=== PATIENT | female | born 1955 | race Caucasian/White ===

== ENCOUNTER 2017-05-04 12:28 | Emergency (ER) | payer BC, OTHER ==
[2017-05-04 14:35] LABS: Hematocrit 43 % (35-47); Hemoglobin 14.5 g/dl (12.0-16.0); Mean Corpuscular HGB Conc 34 g/dl (31-36); Mean Corpuscular Hemoglobin 33 pg (27-31); Mean Corpuscular Volume 98 fL (80-97); Mean Platelet Volume 8 um3 (7.4-10.4); Platelet Count 229 10^3/ul (150-450); Red Blood Count 4.42 10^6/ul (4.0-5.4); Red Cell Distribution Width 14 % (10.5-15); White Blood Count 4.3 10^3/ul (3.5-10.8)
[2017-05-04 14:53] LABS: Urine Appearance Clear; Urine Blood Negative (Negative); Urine Color Straw; Urine Ketones Negative (Negative); Urine Protein Negative (Negative); Urine Specific Gravity 1.003 (1.010-1.030); Urine Urobilinogen Negative (Negative)
[2017-05-04] MEDS ORDERED: Iohexol 350* (CONTRAST) 500 ML MDV IV ONE (15:42)
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
--- NOTE | 2017-05-04 16:18 | RAD ---
INDICATION: Chest pain. Short of breath. Evaluate for pulmonary embolus. COMPARISON: CT chest/abdomen/pelvis February 27, 2016 TECHNIQUE: Axial source images were obtained from the thoracic inlet to the hemidiaphragms following administration of [address] angiographic technique was utilized. Coronal and sagittal reconstructed images were acquired. CHEST FINDINGS: Neck/thyroid: The visualized neck to include the thyroid appear normal. Chest wall: There are no acute abnormalities of the bony thorax or chest wall. There is no supraclavicular, infraclavicular, or axillary lymphadenopathy. Lungs : There are no pulmonary parenchymal masses or infiltrates. There are mild emphysematous changes. There are no endobronchial lesions. Cardiomediastinal structures: There is no CT evidence of acute pulmonary embolic disease. The heart is normal in size. There is no pericardial effusion. There is no evidence of aortic aneurysm or dissection. There is mild annuloaortic ectasia. The aortic root and ascending thoracic aorta measure up to 3.5 cm. There is no mediastinal or hilar adenopathy. The esophagus appears normal. Pleura : There are no pleural-based masses or effusions. Other: There is a patulous GE junction. IMPRESSION: NO CT EVIDENCE OF ACUTE PULMONARY EMBOLIC DISEASE.
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
[2017-05-04 17:50] VITALS: BP 144/83
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
== END 2017-05-04 18:00 | disposition home or self-care (01) ==
LOC: ED 12:28
DX: R07.89 Other chest pain (principal)
CPT/HCPCS: 36415; 70450; 71275; 72125; 80053; 80320; 81003; 85027; 86850; 86900; 86901; 93005; 96372; 99284; G0480; Q9967

== ENCOUNTER 2022-07-28 09:31 | Inpatient (IN) ==
[2022-07-28] MEDS ORDERED: Morphine 4 MG/ML VIAL (1 ml) IV ONE (09:35)
[2022-07-28 09:59] LABS: ABS Lymphocytes 0.9 10^3/ul (1.0-4.8); ABS Neutrophils 4.6 10^3/ul (1.5-7.7); Eosinophil % 0.3 %; Hematocrit 37 % (35-47); Hemoglobin 12.7 g/dL (12.0-16.0); Lymphocyte % 13.6 %; Mean Corpuscular HGB Conc 34 g/dL (31-36); Mean Corpuscular Hemoglobin 34 pg (27-31); Mean Corpuscular Volume 100 fL (80-97); Mean Platelet Volume 8.3 fL (7.4-10.4); Platelet Count 211 10^3/uL (150-450); Red Blood Count 3.74 10^6 /uL (3.70-4.87); Red Cell Distribution Width 14 % (10-15); White Blood Count 6.5 10^3/uL (3.5-10.8)
[2022-07-28 10:09] LABS: INR 1.03 (0.88-1.18)
[2022-07-28 10:43] LABS: ALT 36 U/L (7-52); AST 70 U/L (13-39); Albumin 3.8 g/dL (3.2-5.2); Albumin/Globulin Ratio 1.4 (1-3); Alcohol, S < 13 mg/dL (<13); Alkaline Phosphatase 168 U/L (35-149); Anion Gap 12 mmol/L (2-11); Blood Urea Nitrogen 14 mg/dL (6-24); CO2 Carbon Dioxide 27 mmol/L (22-32); Calcium 9.2 mg/dL (8.6-10.3); Chloride 97 mmol/L (101-111); Creatinine, Serum 0.73 mg/dL (0.51-0.95); Globulin 2.7 g/dL (2-4); Glucose 155 mg/dL (70-100); Magnesium 1.3 mg/dL (1.9-2.7); Potassium 3.2 mmol/L (3.5-5.0); Sodium 136 mmol/L (135-145); Total Protein 6.5 g/dL (6.4-8.9); eGFR CKD-EPI 90.1 (>60)
[2022-07-28] MEDS ORDERED: Acetaminophen IV 1 GM/100ML 1,000 MG/100 ML BAG IV PRN (12:04)
[2022-07-28] MEDS ORDERED: Magnesium Sulf 4 GM/100 ML IV 4,000 MG/100 ML BAG IVPB ONE (12:05)
[2022-07-28] MEDS ORDERED: KCL 20 MEQ/100 ML IVPREMIX 20 MEQ/100 ML BAG IV SCH (13:00)
[2022-07-28] MEDS ORDERED: Lactated Ringers 1000 ml BAG 1,000 ML IV SCH ×2 (13:00→18:00)
[2022-07-28] MEDS: KCL 20 MEQ/100 ML IVPREMIX 20 MEQ/100 ML BAG IV SCH ×2 (15:08→17:18)
[2022-07-28] MEDS ORDERED: D5W IV ONE (15:38)
[2022-07-28] MEDS ORDERED: CEFTRIAXONE 2 GM/50 ML IV ONE (15:38)
[2022-07-28] MEDS ORDERED: ceFAZolin 2 GM in NS PREMIX 2 GM/100 ML BAG IVPB ONE (15:52)
[2022-07-28 16:04] LABS: Vitamin B12 306 pg/mL (180-914)
[2022-07-28 16:07] LABS: Vitamin D Total 25(OH) 23.6 ng/mL (20-50)
[2022-07-28] MEDS: Thiamine 100 MG/ML 2 ml VIAL 100 MG in NS 0.9% 50 ML 50 ML IV SCH (16:17)
[2022-07-28 16:59] LABS: Folate 7.86 ng/mL (5.90-24.80)
[2022-07-28] MEDS ORDERED: Ondansetron 4 mg VIAL 2 MG/ML 2 ml VIAL IV PRN (17:40)
[2022-07-28] MEDS ORDERED: Naloxone 0.4 mg VIAL 0.4 mg/ml 1 ml VIAL IV PRN (17:40)
[2022-07-28] MEDS ORDERED: fentaNYL 100 mcg/2 ml 50 MCG/ML VIAL IV PRN (17:40)
[2022-07-28] MEDS ORDERED: Midazolam 2 mg/2 ml VIAL 1 mg/ml 2 ml VIAL (2 mg) ONE (19:02)
[2022-07-28] MEDS ORDERED: fentaNYL 100 mcg/2 ml 50 MCG/ML VIAL ONE (19:02)
[2022-07-28] MEDS ORDERED: Lidocaine 2% PF 5 ML VIAL ONE (19:03)
[2022-07-28] MEDS ORDERED: Dexamethasone IV 4 MG/ML VIAL 1 ml VIAL ONE (19:03)
[2022-07-28] MEDS ORDERED: Propofol 10 MG/ML 20 ML BTL ONE (19:03)
[2022-07-28] MEDS ORDERED: Ondansetron 4 mg VIAL 2 MG/ML 2 ml VIAL ONE (19:03)
[2022-07-28] MEDS ORDERED: Phenylephrine IV 10 MG/ML 1 ml VIAL ONE (19:03)
[2022-07-28] MEDS ORDERED: ROPIVACAINE 5 MG/ML 30 ML BTL (0.5%) ONE (19:08)
[2022-07-29 00:14] LABS: Calcium 8.7 mg/dL (8.6-10.3); Creatinine, Serum 0.65 mg/dL (0.51-0.95); Magnesium 2.4 mg/dL (1.9-2.7); Potassium 3.6 mmol/L (3.5-5.0); eGFR CKD-EPI 96.4 (>60)
[2022-07-29] MEDS: ceFAZolin 1 GM in Dextrose 1 GM/50 ML BAG IVPB SCH ×3 (00:33→16:48)
[2022-07-29 06:34] LABS: ABS Lymphocytes 0.6 10^3/ul (1.0-4.8); ABS Monocytes 0.7 10^3/ul (0-0.8); ABS Neutrophils 5.7 10^3/ul (1.5-7.7); Hematocrit 32 % (35-47); Hemoglobin 11.1 g/dL (12.0-16.0); Lymphocyte % 8.9 %; Mean Corpuscular HGB Conc 35 g/dL (31-36); Mean Corpuscular Hemoglobin 35 pg (27-31); Mean Corpuscular Volume 102 fL (80-97); Mean Platelet Volume 9.1 fL (7.4-10.4); Platelet Count 177 10^3/uL (150-450); Red Blood Count 3.14 10^6 /uL (3.70-4.87); Red Cell Distribution Width 14 % (10-15); White Blood Count 7.1 10^3/uL (3.5-10.8)
[2022-07-29 06:59] LABS: Albumin 3.3 g/dL (3.2-5.2); Albumin/Globulin Ratio 1.4 (1-3); Calcium 8.5 mg/dL (8.6-10.3); Creatinine, Serum 0.61 mg/dL (0.51-0.95); Globulin 2.4 g/dL (2-4); Potassium 3.8 mmol/L (3.5-5.0); Total Bilirubin 0.9 mg/dL (0.2-1.0); Total Protein 5.7 g/dL (6.4-8.9); eGFR CKD-EPI 97.9 (>60)
[2022-07-29] MEDS: Enoxaparin 30 MG/0.3 ML SYR IV SCH (08:34)
[2022-07-29] MEDS: Thiamine 100 MG/ML 2 ml VIAL 100 MG in NS 0.9% 50 ML 50 ML IV SCH ×2 (16:48→19:08)
[2022-07-30] MEDS: Enoxaparin 30 MG/0.3 ML SYR IV SCH (10:16)
[2022-07-30 10:23] LABS: Hematocrit 29 % (35-47); Hemoglobin 9.6 g/dL (12.0-16.0)
[2022-07-30] MEDS ORDERED: Magnesium Hydroxide LIQ 30 ML UDC PO PRN (12:10)
[2022-07-30] MEDS ORDERED: Senna TAB 8.6 mg TAB PO PRN (12:10)
[2022-07-30] MEDS ORDERED: Polyethylene Glycol 3350 17 GM PACKET PO PRN (12:10)
[2022-07-30] MEDS ORDERED: Thiamine 100 MG/ML 2 ml VIAL 100 MG in NS 0.9% 50 ML 50 ML IV SCH (16:00)
[2022-07-30] MEDS: Thiamine 100 MG/ML 2 ml VIAL 100 MG in NS 0.9% 50 ML 50 ML IV SCH (16:03)
[2022-07-30] MEDS ORDERED: Magnesium Hydroxide LIQ 30 ML UDC PO SCH (21:00)
[2022-07-31 08:19] LABS: Hematocrit 28 % (35-47); Hemoglobin 9.5 g/dL (12.0-16.0)
[2022-07-31] MEDS: Enoxaparin 30 MG/0.3 ML SYR IV SCH (08:21)
[2022-07-31 11:35] VITALS: BP 112/82
== END 2022-07-31 14:00 | DRG 480 ==
LOC: ED 09:31 → SUATTDRO 11:58 → EDHOLD 11:58 → SSU 23:17
PROVIDERS: ADMIT Internal Medicine; ATTEND Hospitalist